=== PATIENT | female | born 1960 | race Caucasian/White ===

== ENCOUNTER → 2017-11-30 | Outpatient (CLI) | payer OTHER ==
[~2017-11-30] MED LIST: (None)50 MG PO; ASPI81CH PO; ATOR20 PO; Apple Cider Vi500 MG PO; CALC.25 PO; CELE200 PO; CETI5 PO; CHOL10002; CHRO200 PO; CITA20 PO; CLOP75 PO; CVS EYE BOTHEYES; Cinnamon500 MG PO; Crestor40 MG PO; DULO30 PO; DULO60 PO; FERRO-TIME325 MG PO; FISH1000 PO; FLONASE ALLERG9.9 ML NS; FOLI1 PO; FOLI400 PO; FURO20 PO; Fruity C250 MG PO; Garlic1 EAC1 PO; Garlic1000 MG PO; LEVSOD125 PO; LIDO5TP TOP; LOSA50 PO; Laxative5 M1 PO; Lisinopril2.5 MG PO; MAGNESIUM250 MG PO; NAPR220 PO; Novolog Fl100 UNIT/1 SC; OXYC5; SODBIC650 PO; Synthroid112 MCG PO; TOUJEO SOL300 UNIT/1 SQ; TUMERIC PO; VASCEPA0.5 GM PO; Valium5 MG PO; [UNRECOGNIZED DRUG - CODE] TOP; [UNRECOGNIZED DRUG - OTHER] PO
[2017-12-01 14:47] LABS: Source VAGINAL
== END | disposition home or self-care (01) ==
LOC: LAB 13:43 → LAB SHORT 13:43
PROVIDERS: Family Medicine
DX: Z00.00 Encounter for general adult medical examination without abnormal findings (principal)
CPT/HCPCS: G0145

== ENCOUNTER 2017-12-05 00:20 | Day surgery (SDC) | payer OTHER ==
[~2017-12-05 00:20] MED LIST changes: -CALC.25 PO; -CLOP75 PO; -CVS EYE BOTHEYES; -Crestor40 MG PO; -DULO60 PO; -FERRO-TIME325 MG PO; -FOLI1 PO; -FURO20 PO; -Fruity C250 MG PO; -LOSA50 PO; -Laxative5 M1 PO; -Novolog Fl100 UNIT/1 SC; -TUMERIC PO; -VASCEPA0.5 GM PO; -[UNRECOGNIZED DRUG - CODE] TOP; -[UNRECOGNIZED DRUG - OTHER] PO
[2017-12-05] MEDS ORDERED: DULO60 PO (14:55)
[2017-12-05] MEDS ORDERED: FOLI1 PO (14:56)
[2017-12-05] MEDS ORDERED: Laxative5 M1 PO (15:04)
[2017-12-05] MEDS ORDERED: [UNRECOGNIZED DRUG - OTHER] PO (15:05)
[2017-12-05] MEDS ORDERED: CLOP75 PO (15:07)
[2017-12-05] MEDS ORDERED: Novolog Fl100 UNIT/1 SC (15:07)
[2017-12-05] MEDS ORDERED: LOSA25 PO (15:07)
[2017-12-05] MEDS ORDERED: CVS EYE BOTHEYES (15:10)
[2017-12-05] MEDS ORDERED: [UNRECOGNIZED DRUG - CODE] TOP (15:15)
[2017-12-05] MEDS ORDERED: Crestor40 MG PO (15:16)
[2017-12-05] MEDS ORDERED: FURO20 PO (15:16)
[2017-12-05] MEDS ORDERED: TUMERIC PO (15:18)
[2017-12-05] MEDS ORDERED: VASCEPA0.5 GM PO (15:19)
[2017-12-05] MEDS ORDERED: CALC.25 PO (15:20)
[2017-12-05] MEDS ORDERED: FERRO-TIME325 MG PO (15:22)
[2017-12-05] MEDS ORDERED: Fruity C250 MG PO (15:24)
== END 2017-12-05 15:15 | disposition home or self-care (01) ==
LOC: ATC 00:20
DX: N18.5 Chronic kidney disease, stage 5 (principal); D63.1 Anemia in chronic kidney disease
CPT/HCPCS: 96365; J2916

== ENCOUNTER 2018-04-24 08:48 | Day surgery (SDC) | payer OTHER ==
[~2018-04-24] VITALS: Ht 165.1 cm; Wt 108.0 kg
[~2018-04-24 08:48] MED LIST changes: +CALC.25 PO; +CLOP75 PO; +CVS EYE BOTHEYES; +Crestor40 MG PO; +DULO60 PO; +FERRO-TIME325 MG PO; +FOLI1 PO; +FURO20 PO; +Fruity C250 MG PO; +LOSA25 PO; +Laxative5 M1 PO; +Novolog Fl100 UNIT/1 SC; +TUMERIC PO; +VASCEPA0.5 GM PO; +[UNRECOGNIZED DRUG - CODE] TOP; +[UNRECOGNIZED DRUG - OTHER] PO
[2018-04-24] MEDS ORDERED: GABA100 PO (09:25)
[2018-04-25 04:03] LABS: Hematocrit 32.1 % (33.0-51.0); Hemoglobin 10.6 g/dL (11.5-16.0)
[2018-04-25 04:32] LABS: Albumin, Blood 3.2 g/dL (3.4-5.0); Anion Gap 7 mmol/L (6-16); Blood Urea Nitrogen 34 mg/dL (8-24); Bun/Creatinine Ratio 8.6 (12.0-20.0); CO2, Blood 30 mmol/L (21-32); Calcium, Blood 8.2 mg/dL (8.5-10.1); Chloride, Blood 99 mmol/L (98-108); Creatinine, Blood 3.94 mg/dL (0.40-1.00); Glomerular Filtration Rate 12 (60-); Glucose, Blood 194 mg/dL (70-99); Phosphorus, Blood 3.3 mg/dL (2.5-4.9); Sodium, Blood 136 mmol/L (136-145)
[2018-04-25] MEDS ORDERED: SEVE800 PO (15:19)
== END 2018-04-25 15:58 | disposition home or self-care (01) ==
LOC: MHTC 08:48 → PCU 10:17 → MHTC 04-25 15:58
PROVIDERS: Internal Medicine
PROC: B2111ZZ Fluoroscopy of Multiple Coronary Arteries using Low Osmolar Contrast (ICD-10-PCS; principal; 2018-04-24)
PROC: 4A033BC Measurement of Arterial Pressure, Coronary, Percutaneous Approach (ICD-10-PCS; principal; 2018-04-24)
DX: I42.0 Dilated cardiomyopathy (principal); I34.0 Nonrheumatic mitral (valve) insufficiency; I51.9 Heart disease, unspecified; I25.10 Atherosclerotic heart disease of native coronary artery without angina pectoris; E11.22 Type 2 diabetes mellitus with diabetic chronic kidney disease; I12.0 Hypertensive chronic kidney disease with stage 5 chronic kidney disease or end stage renal disease; N18.6 End stage renal disease; E21.3 Hyperparathyroidism, unspecified; E66.9 Obesity, unspecified; Z99.2 Dependence on renal dialysis; Z86.73 Personal history of transient ischemic attack (TIA), and cerebral infarction without residual deficits; Z79.899 Other long term (current) drug therapy; Z88.1 Allergy status to other antibiotic agents; Z91.048 Other nonmedicinal substance allergy status; Z91.040 Latex allergy status; Z79.4 Long term (current) use of insulin
CPT/HCPCS: 36415; 80069; 82947; 85014; 85018; 93454; 93571; 99152; 99153; C1732; C1760; C1769; G0257; J0360; J1644; J1815; J1817; J2250; J3010; J7030; Q9967

== ENCOUNTER 2018-12-19 21:00 | Emergency (ER) | payer MEDICARE ==
[~2018-12-19] VITALS: Ht 167.6 cm; Wt 119.8 kg
[~2018-12-19 21:00] MED LIST changes: +GABA100 PO; +SEVE800 PO
[2018-12-19] MEDS ORDERED: WARF1 PO (23:31)
== END 2018-12-20 00:15 | disposition home or self-care (01) ==
LOC: ER 21:00
DX: T82.838A Hemorrhage due to vascular prosthetic devices, implants and grafts, initial encounter (principal); I12.0 Hypertensive chronic kidney disease with stage 5 chronic kidney disease or end stage renal disease; N18.6 End stage renal disease; E78.5 Hyperlipidemia, unspecified; E11.22 Type 2 diabetes mellitus with diabetic chronic kidney disease; F32.9 Major depressive disorder, single episode, unspecified
CPT/HCPCS: 99282

== ENCOUNTER 2019-01-07 18:28 | Emergency (ER) | payer MEDICARE ==
[~2019-01-07] VITALS: Ht 167.6 cm; Wt 117.9 kg
[~2019-01-07 18:28] MED LIST changes: +WARF1 PO
== END 2019-01-07 20:19 | disposition home or self-care (01) ==
LOC: ER 18:28
DX: T82.591A Other mechanical complication of surgically created arteriovenous shunt, initial encounter (principal); Z91.048 Other nonmedicinal substance allergy status; Z88.0 Allergy status to penicillin; Z91.040 Latex allergy status; Z79.4 Long term (current) use of insulin; Z79.899 Other long term (current) drug therapy; Z79.82 Long term (current) use of aspirin; Z79.01 Long term (current) use of anticoagulants
CPT/HCPCS: 12001; 99282-25

== ENCOUNTER 2019-07-16 17:03 | Inpatient (IN) | payer MEDICARE ==
[~2019-07-16] VITALS: Ht 167.6 cm; Wt 116.8 kg
[~2019-07-16 17:03] MED LIST changes: -ASPI81CH PO; +Apple Cider Vi300 MG PO; -Apple Cider Vi500 MG PO; +Aspirin EC81 MG PO; -CHOL10002; +CLARITIN10 MG PO; -Crestor40 MG PO; -DULO60 PO; +ROSU10TA PO; +TOUJEO SOL300 UNIT/1 SC; -TOUJEO SOL300 UNIT/1 SQ; +VITAMIN D31000 UNI2 PO; -WARF1 PO; +WARF4 PO; -[UNRECOGNIZED DRUG - OTHER] PO
[2019-07-16 18:40] LABS: BASOPHILS ABSOLUTE AUTO 0.03 K/mm3 (0.00-0.23); BASOPHILS PERCENT AUTO 1 % (0-2); EOSINOPHILS ABSOLUTE AUTO 0.03 K/mm3 (0.00-0.68); EOSINOPHILS PERCENT AUTO 1 % (0-6); Hematocrit 32.7 % (33.0-51.0); Hemoglobin 10.6 g/dL (11.5-16.0); IMMATURE GRAN ABSOLUTE AUTO 0.01 K/mm3 (0.00-0.10); IMMATURE GRAN PERCENT AUTO 0 % (0-1); LYMPHOCYTES ABSOLUTE AUTO 0.96 K/mm3 (0.84-5.20); LYMPHOCYTES PERCENT AUTO 23 % (21-46); MONOCYTES ABSOLUTE AUTO 0.43 K/mm3 (0.16-1.47); MONOCYTES PERCENT AUTO 10 % (4-13); Mean Corpuscular HGB 30.8 pg (26.0-34.0); Mean Corpuscular HGB Conc 32.4 g/dL (31.5-36.5); Mean Corpuscular Volume 95 fL (80-100); Mean Platelet Volume 9.6 fL (9.1-12.4); NEUTROPHILS ABSOLUTE AUTO 2.77 K/mm3 (1.96-9.15); NEUTROPHILS PERCENT AUTO 66 % (41-73); Platelet Count 156 K/mm3 (150-400); RDW Coefficient Variation 14.1 % (11.7-14.2); RDW Standard Deviation 49.2 fL (35.1-46.3); Red Blood Cell Count 3.44 M/mm3 (3.80-5.20); White Blood Cell Count 4.23 K/mm3 (4.00-11.30)
[2019-07-16 18:50] LABS: International Normalized Ratio 1.47
[2019-07-16 19:03] LABS: Albumin, Blood 3.9 g/dL (3.4-5.0); Albumin/Globulin Ratio 1.1 (0.8-1.8); Bilirubin, Total 0.7 mg/dL (0.1-1.0); Calcium, Blood 9.2 mg/dL (8.5-10.1); Globulin, Blood 3.6 g/dL (2.2-4.0); Total Protein, Blood 7.5 g/dL (6.4-8.2)
[2019-07-16 19:21] LABS: Bun/Creatinine Ratio 6.1 (12.0-20.0); Creatinine, Blood 3.94 mg/dL (0.40-1.00)
[2019-07-16] MEDS ORDERED: SYNTHROID150 MC1 PO (20:40)
[2019-07-16] MEDS ORDERED: RENAL-VITE TAB0.8 MG PO (20:43)
[2019-07-16] MEDS ORDERED: PREG75 PO (20:44)
[2019-07-16] MEDS ORDERED: CITA20 PO (20:44)
[2019-07-16] MEDS ORDERED: SENN187 PO (20:44)
[2019-07-16] MEDS ORDERED: MEGA BIOTIN10000 MCG PO (20:45)
[2019-07-16] MEDS ORDERED: Calcium Acetat667 MG PO (20:45)
[2019-07-17] MEDS ORDERED: TOUJEO SOL300 UNIT/1 SC (05:55)
--- NOTE | 2019-07-17 07:30 | NUR ---
ASSUMED CARE: PT AWAKE, SPEAKING TO STAFF. HEPARIN GTT RUNNING, CONFIRMED NUMBERS WITH NIGHT RN. NO ACUTE NEEDS OR CONCERNS AT THIS TIME.
--- NOTE | 2019-07-17 07:36 | NUR ---
END OF SHIFT SUMMARY PT TO PCY FROM ED, AXO, SBA X1 DUE TO IV POLE. VSS UPON ADMIT AND CONTINUES T/O SHIFT. PT ADMISSION PACKET COMPLETED. 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 PT ON CL DIET, NO REDS. CONSULT CALLED TO LIS, GI CONSULT ATTEMPTED TO BE CALLED IN, ANSWERING SERVICE STATED HAVING TO WAIT UNTIL 0800 TO CALL IN CONSULT, ONCOMING NURSE NOTIFIED OF THIS. FISTULA R ARM, STRONG BRUIT. HEPARIN INFUSION STARTED, TITRATED POST LABS AND TWO SEPARATE HEPARIN BOLUS GIVEN. OTHERWISE, PT HAS BEEN PLEASANT AND COOPERATIVE WITH STAFF. CALL LIGHT WITHIN REACH. BED IN LOWEST POSITION. REPORT GIVEN TO ONCOMING RN.
--- NOTE | 2019-07-17 09:11 | NUR ---
DR DIAS CALLED AND STATED THIS IS A PT OF DR KENNEDY AND THAT HE IS THE ONE THAT WANTED THE COLONOSCOPY. CALL TO DR KENNEDY'S OFFICE FOR NEW CONSULT
--- NOTE | 2019-07-17 14:44 | NUR ---
DR HAYS CAME TO SEE PT AND STATED THAT SHE IS FINE TO COMPLETE GOLYTELY. SPOKE WITH DIALYSIS NURSE TO RUN PT THIS AFTERNOON AND STATES TO START BOWEL PREP AFTER DIALYSIS IS FINISHED. CALL TO DAY SURGERY FOR SCHEDULE, PLAN IS FOR 10 AM. PT AND SPOUSE AWARE
--- NOTE | 2019-07-17 16:00 | NUR ---
DIALYSIS NURSE AT BEDSIDE
--- NOTE | 2019-07-17 16:27 | NUR ---
DISCUSSED GOLYTELY ORDERS WITH PT AND COMMERCIAL ESCROW OFFICER. AGREED TO HOLD UNTIL AFTER DIALYSIS
--- NOTE | 2019-07-17 18:33 | NUR ---
REPORT GIVEN TO ANN CURRAN. AWARE THAT GOLYTELY IS STARTING WHEN PT ARRIVES AND HEPARIN OFF AT 6 AM. PT STILL RECIEVING DIALYSIS AT THIS TIME. DENIES FURTHER NEEDS OR CONCERNS
--- NOTE | 2019-07-18 04:33 | NUR ---
SHIFT SUMMARY PT IS ALERT, ORIENTED AND INDEPENDENT. PT HAS BEEN MADE NPO PER THE SCHEDULED COLONOSCOPY THIS MORNING. PT MANAGED TO FINISH COLO PREP BY 2300, AND HAS HAD CLEAR BMS SINCE 0100. PT TOLERATED OVERALL BOWEL PREP WELL, HOWEVER THE PT DID GET EMOTIONAL AFTER A COUPLE OF INCONTINENT EPISODES. THERAPUTIC COMMUNICATION WAS USED TO GOOD EFFECT. PT DID FEEL A LITTLE SHAKEY DURING THE PREP. BLOOD SUGAR WAS CHECKED, AND WAS WNL. NO OTHER COMPLAINTS AT THIS TIME. VSS. WILL CONTINUE TO MONITOR.
--- NOTE | 2019-07-18 11:49 | NUR ---
History, Chart, Medications and Allergies reviewed before start of procedure. Patient confirms NPO status and agrees with scheduled surgery. Lungs clear T/O to Auscultation. Pre-Op teaching done. Pt verbalizes understanding. Patient states colon prep results clear.
--- NOTE | 2019-07-18 11:55 | NUR ---
PATIENT LEFT GLASSES IN ROOM. REDUCED VISION IN RIGHT EYE PER PATIENT. DENIES NEEDING HER GLASSES FOR CONSENT. AT BEDSIDE.
--- NOTE | 2019-07-18 11:56 | NUR ---
PATIENT NOTIFIED THAT THERE WOULD BE A WAIT, CALL LIGHT PROVIDED, QUESTIONS ANSWERED, PATIENT COMPFORT PROVIDED.
--- NOTE | 2019-07-18 13:13 | NUR ---
07/18/19 1313 Stephanie Russell PROCEDURE ROOM ENDO ROOM #1.
--- NOTE | 2019-07-18 18:00 | NUR ---
SUMMARY PT SITTING UP IN THE CHAIR AT THE BEDSIDE EATING DINNER AND VISITING WITH HER FAMILY, PT HAS BEEN PLEASANT AND COOPERATIVE T/O THE DAY, PT HAD A COLONOSCOPY AND JOSE ALBERTO WELL, PT BACK ON THE HEPARIN GTT, NO DIALYSIS TODAY, VSS, NO ACUTE CHANGES, WILL CONT TO MONITOR
--- NOTE | 2019-07-19 04:48 | NUR ---
SHIFT SUMMARY PT IS ALERT, ORIENTED, AND INDEPENDENT. PT'S HEPARIN GTT CONTINUES TO BE MANAGED BY PHARMACY. THE RATE WAS CHANGED ONCE. NO SIGNS OF BLEEDING FROM PT. PT IS WITHOUT COMPLAINTS. VSS. WILL CONTINUE TO MONITOR.
[2019-07-19 05:34] LABS: International Normalized Ratio 1.14; Prothrombin Time Results 11.9 Sec (9.7-11.5)
[2019-07-19 10:40] LABS: Hematocrit 28.4 % (33.0-51.0); Hemoglobin 9.5 g/dL (11.5-16.0)
[2019-07-19 10:58] LABS: Albumin, Blood 3.4 g/dL (3.4-5.0); Anion Gap 3 mmol/L (6-16); Blood Urea Nitrogen 29 mg/dL (8-24); Bun/Creatinine Ratio 7.1 (12.0-20.0); CO2, Blood 35 mmol/L (21-32); Calcium, Blood 8.3 mg/dL (8.5-10.1); Chloride, Blood 95 mmol/L (98-108); Creatinine, Blood 4.09 mg/dL (0.40-1.00); Glomerular Filtration Rate 12 (60-); Glucose, Blood 169 mg/dL (70-99); Phosphorus, Blood 3.7 mg/dL (2.5-4.9); Potassium, Blood 3.8 mmol/L (3.5-5.5); Sodium, Blood 133 mmol/L (136-145)
--- NOTE | 2019-07-19 18:28 | NUR ---
END OF SHIFT SUMMARY: PATIENT DENIED PAIN OR DISCOMFORT THROUGHOUT SHIFT. PATIENT WENT TO DIALYSIS THIS MORNING. TOLERATED WITHOUT GENERALIZED FATIGUE. HEPARIN DRIP CONTINUES TO PHARMACY CONSULT. PATIENT UNDERSTANDS THE PURPOSE OF THE MEDICATION. STARTED COUMADIN THIS EVENING PER PHARMACY CONSULT. PATIENT REPORTS THAT SHE IS ON THIS MEDICATION AT HOME AND FEELS COMFORTABLE WITH THIS MEDICATION. AT BEDSIDE FOR MUCH OF THE SHIFT. PATIENT UP TO CHAIR FOR MEALS AND RELAXATION. PATIENT DENIES DIZZINESS, SOB, OR LIGHTHEADEDNESS WITH AMBULATION. PATIENT IS HOPEFUL FOR A SUNDAY DISCHARGE.
[2019-07-20 05:00] LABS: Mean Platelet Volume 9.6 fL (9.1-12.4); Platelet Count 154 K/mm3 (150-400)
--- NOTE | 2019-07-20 05:09 | NUR ---
07/20/19 0500 AWAKE FOR LABWORK EARLIER AND TRIP TO THE BATHROOM FOR VOIDING. SLEPT POORLY DUE TO POOR PILLOWS AND MATTRESS. LAYING IN LOUNGE CHAIR FOR NOW AND HOPES TO SLEEP AGAIN. VITALS STABLE. AWAITING FOR COAG. PANEL TO ADJUST HEPARIN DRIP IF NEEDED. PHARMACY TO MONITOR HEPARIN DRIP DOSAGE.
[2019-07-20 05:19] LABS: International Normalized Ratio 1.15
--- NOTE | 2019-07-20 17:54 | NUR ---
Shift Summary A/Ox4, independent. Pleasant and cooperative with care. Ambulated in hallway a few times today, tolerated well. Pt scheduled for dialysis tomorrow (07/21). No c/o of pain, N/V/D. VSS, afebrile.
--- NOTE | 2019-07-21 00:11 | NUR ---
07/20/19 2300 PT HAVING TROUBLE SLEEPING THE PAST 2 DAYS AND RN PAGED MD FOR SLEEPER ORDER. ATIVAN 0,5 MG GIVEN. PT ALSO REQUESTED NOT TO BE AWAKENED FOR VITALS DURING THE NIGHT. AGREES TO VITALS WHEN LABWORK DRAWN.
--- NOTE | 2019-07-21 05:30 | NUR ---
07/21/19 0530 CHEERFUL THIS AM AND STATES SHE SLEPT WELL AFTER GETTING SLEEPER MED. VITALS STABLE. HEPARIN DRIP MAINTAINED AND AWAITING NEW LABWORK.
[2019-07-21 05:50] LABS: International Normalized Ratio 1.35; Prothrombin Time Results 13.9 Sec (9.7-11.5)
[2019-07-21 10:16] LABS: BASOPHILS ABSOLUTE AUTO 0.02 K/mm3 (0.00-0.23); BASOPHILS PERCENT AUTO 1 % (0-2); EOSINOPHILS ABSOLUTE AUTO 0.05 K/mm3 (0.00-0.68); EOSINOPHILS PERCENT AUTO 2 % (0-6); Hematocrit 27.3 % (33.0-51.0); Hemoglobin 9.2 g/dL (11.5-16.0); IMMATURE GRAN ABSOLUTE AUTO 0.01 K/mm3 (0.00-0.10); IMMATURE GRAN PERCENT AUTO 0 % (0-1); LYMPHOCYTES ABSOLUTE AUTO 0.72 K/mm3 (0.84-5.20); LYMPHOCYTES PERCENT AUTO 25 % (21-46); MONOCYTES ABSOLUTE AUTO 0.23 K/mm3 (0.16-1.47); MONOCYTES PERCENT AUTO 8 % (4-13); Mean Corpuscular HGB 31.2 pg (26.0-34.0); Mean Corpuscular HGB Conc 33.7 g/dL (31.5-36.5); Mean Corpuscular Volume 93 fL (80-100); Mean Platelet Volume 9.6 fL (9.1-12.4); NEUTROPHILS ABSOLUTE AUTO 1.81 K/mm3 (1.96-9.15); NEUTROPHILS PERCENT AUTO 64 % (41-73); Platelet Count 125 K/mm3 (150-400); RDW Standard Deviation 47.3 fL (35.1-46.3); Red Blood Cell Count 2.95 M/mm3 (3.80-5.20); White Blood Cell Count 2.84 K/mm3 (4.00-11.30)
[2019-07-21 11:02] LABS: Albumin, Blood 3.5 g/dL (3.4-5.0); Anion Gap 9 mmol/L (6-16); Blood Urea Nitrogen 34 mg/dL (8-24); Bun/Creatinine Ratio 7.7 (12.0-20.0); CO2, Blood 29 mmol/L (21-32); Calcium, Blood 8.1 mg/dL (8.5-10.1); Chloride, Blood 95 mmol/L (98-108); Creatinine, Blood 4.42 mg/dL (0.40-1.00); Glomerular Filtration Rate 11 (60-); Glucose, Blood 203 mg/dL (70-99); Sodium, Blood 133 mmol/L (136-145)
--- NOTE | 2019-07-21 14:17 | NUR ---
Per Dr. Walker and Shubham's conversation RE pt concerns of diet, Regular diet is now ordered.
--- NOTE | 2019-07-21 17:07 | NUR ---
Physician notified Dr. Walker notified RE patient's concern as to why she isn't taking Calcium Acetate along with Renvela like she does at home. Dr. Walker will f/u with Dr. Garnica with this concern tomorrow (07/21). Will pass on to next nurse to remind physician about this.
--- NOTE | 2019-07-21 17:10 | NUR ---
Shift Summary A/Ox4. Pleasant and cooperative with care. Pt was dialyzed today. Pt concern about her phosphate binders, this concern was brought up to Dr. Walker (see previous note). Pt was also upset with CarbCon diet and its restrictions. Dietary and Dr. Walker ok to change to Regular Diet. No other acute changes this shift. VSS, afebrile.
--- NOTE | 2019-07-21 17:44 | NUR ---
Physician notified Dr. Walker notified of evening BP 178/66. No orders received.
[2019-07-22 06:47] LABS: International Normalized Ratio 1.78; Prothrombin Time Results 17.9 Sec (9.7-11.5)
--- NOTE | 2019-07-22 07:21 | NUR ---
07/21/19 0600 AWAKE AND IV HEPARIN STOPPED FOR BLOOD DRAWS AND THEN RECONNECTED. SLEPT WELL THIS SHIFT. UNEVENTFUL NIGHT. VITALS STABLE.
--- NOTE | 2019-07-22 17:21 | NUR ---
SHIFT SUMMARY NO ACUTE CHANGES WITH PATIENT CONDITION TODAY. PT IS PLEASANT AND ORIENTED X4, SAT IN CHAIR MOST OF DAY, INDEPENDENT IN ROOM. HEPARIN RUNNING AT 32.8 ML/HR. PT DENIES PAIN, SOB, NAUSEA, STATES SHE WANTS TO GO HOME. POSSIBLE DISCHARGE TOMORROW AFTER DIALYSIS.
--- NOTE | 2019-07-23 04:51 | NUR ---
SHIFT SUMMARY: A/Ox3. Making needs known. Up ambulating independently in room. Walked the halls with spouse. Heparin infusion stopped for blood draw then resumed. Heparin dose unchanged tonight. No complaints at this time. Call button in reach.
[2019-07-23 05:57] LABS: BASOPHILS ABSOLUTE AUTO 0.03 K/mm3 (0.00-0.23); BASOPHILS PERCENT AUTO 1 % (0-2); EOSINOPHILS ABSOLUTE AUTO 0.08 K/mm3 (0.00-0.68); EOSINOPHILS PERCENT AUTO 2 % (0-6); Hematocrit 29.6 % (33.0-51.0); Hemoglobin 9.6 g/dL (11.5-16.0); IMMATURE GRAN ABSOLUTE AUTO 0.01 K/mm3 (0.00-0.10); IMMATURE GRAN PERCENT AUTO 0 % (0-1); LYMPHOCYTES ABSOLUTE AUTO 1.07 K/mm3 (0.84-5.20); LYMPHOCYTES PERCENT AUTO 26 % (21-46); MONOCYTES ABSOLUTE AUTO 0.26 K/mm3 (0.16-1.47); MONOCYTES PERCENT AUTO 6 % (4-13); Mean Corpuscular HGB 30.4 pg (26.0-34.0); Mean Corpuscular HGB Conc 32.4 g/dL (31.5-36.5); Mean Corpuscular Volume 94 fL (80-100); Mean Platelet Volume 10.1 fL (9.1-12.4); NEUTROPHILS ABSOLUTE AUTO 2.71 K/mm3 (1.96-9.15); NEUTROPHILS PERCENT AUTO 65 % (41-73); Platelet Count 132 K/mm3 (150-400); RDW Coefficient Variation 14.2 % (11.7-14.2); Red Blood Cell Count 3.16 M/mm3 (3.80-5.20); White Blood Cell Count 4.16 K/mm3 (4.00-11.30)
[2019-07-23 06:04] LABS: International Normalized Ratio 2.36; Prothrombin Time Results 23.1 Sec (9.7-11.5)
[2019-07-23 06:07] LABS: Albumin, Blood 3.6 g/dL (3.4-5.0); Anion Gap 8 mmol/L (6-16); Blood Urea Nitrogen 46 mg/dL (8-24); CO2, Blood 27 mmol/L (21-32); Calcium, Blood 8.2 mg/dL (8.5-10.1); Chloride, Blood 99 mmol/L (98-108); Creatinine, Blood 5.76 mg/dL (0.40-1.00); Glomerular Filtration Rate 8 (60-); Glucose, Blood 212 mg/dL (70-99); Phosphorus, Blood 6.4 mg/dL (2.5-4.9); Potassium, Blood 5.7 mmol/L (3.5-5.5); Sodium, Blood 134 mmol/L (136-145)
--- NOTE | 2019-07-23 18:20 | NUR ---
SHIFT SUMMARY NO ACUTE CHANGES WITH PATIENT'S CONDITION TODAY. NO CHANGES TO HEPARIN DOSE, HEPARIN RUNNING ALL DAY. DR MCDONOUGH STATED PATIENT WILL NOT DISCHARGE TODAY, WILL WAIT AT LEAST UNTIL THE INR IS DRAWN TOMORROW MORNING. PT HAD DIALYSIS THIS AFTERNOON. VSS, BLOOD SUGARS MORE CONTROLLED.
--- NOTE | 2019-07-24 05:13 | NUR ---
HEPARIN DRIP CONTINUES PER MD ORDERS - SEE MAR FOR DETAILS. DIALYSIS FISTULA STARTED BLEEDING EARLIER IN THE SHIFT, GAUZE DRESSING APPLIED, EFFECTIVE. INR 2.36 AT LAST DRAW, CURRENTLY LAB DRAWING ONE NOW. HAS BEEN RESTING QUIETLY WITH FEW INTERRUPTIONS OTHERWISE. CALL LIGHT IN REACH.
[2019-07-24 06:19] LABS: International Normalized Ratio 2.46
--- NOTE | 2019-07-24 11:40 | NUR ---
PATIENT DISCHARGE: PATIENT DISCHARGED TO HOME THIS SHIFT. MEDICATION RECONCILIATION COMPLETED; MED LIST FAXED TO [facility]; HOME MEDICATION RETURNED TO PATIENT. DISCHARGE EDUCATION COMPLETED WITH PATIENT AND SPOUSE. PATIENT TRANSPORTED TO EXIT BY [facility] STAFF WITH WHEELCHAIR AT 1125. PATIENT DEPARTED [facility] VIA PRIVATE AUTO.
== END 2019-07-24 11:18 | disposition home or self-care (01) | DRG 393 ==
LOC: ER 17:03 → PCU 19:22 → MEDS 19:22 → PCU 21:35 → MEDS 07-17 19:26 → ENPENDDIS 07-24 10:41 → MEDS 07-24 11:18
PROVIDERS: Hospitalist; Internal Medicine; Physician Assistant; Surgery; ADMIT Internal Medicine
PROC: 0DBL8ZX Excision of Transverse Colon, Via Natural or Artificial Opening Endoscopic, Diagnostic (ICD-10-PCS; principal; 2019-07-18 13:00)
PROC: 5A1D70Z Performance of Urinary Filtration, Intermittent, Less than 6 Hours Per Day (ICD-10-PCS; 2019-07-23)
DX: D12.3 Benign neoplasm of transverse colon (principal); N18.6 End stage renal disease; I12.0 Hypertensive chronic kidney disease with stage 5 chronic kidney disease or end stage renal disease; E11.42 Type 2 diabetes mellitus with diabetic polyneuropathy; E11.22 Type 2 diabetes mellitus with diabetic chronic kidney disease; H54.40 Blindness, one eye, unspecified eye; E20.9 Hypoparathyroidism, unspecified; Z79.82 Long term (current) use of aspirin; Z79.4 Long term (current) use of insulin; Z95.2 Presence of prosthetic heart valve; Z86.73 Personal history of transient ischemic attack (TIA), and cerebral infarction without residual deficits; E78.5 Hyperlipidemia, unspecified; E83.39 Other disorders of phosphorus metabolism; Z99.2 Dependence on renal dialysis
CPT/HCPCS: 36415; 80053; 80069; 82947; 85014; 85018; 85025; 85049; 85610; 85730; 88305; 99283; A9270; J0881; J1644; J2704; J7030

== ENCOUNTER 2020-07-27 21:41 | Observation (INO) | payer MEDICARE ==
[~2020-07-27] VITALS: Ht 172.7 cm; Wt 129.3 kg
[~2020-07-27 21:41] MED LIST changes: +BIOTIN PO; +Calcium Acetat667 MG PO; +PREG75 PO; +Rena-Vite Tabl0.8 MG PO; +SENN187 PO; +SYNTHROID150 MC1 PO; +TOUJEO SOL300 UNIT/2 SC; +VITAMIN D31000 UNI1 PO; -VITAMIN D31000 UNI2 PO
[2020-07-27 22:42] LABS: Source, Urine Clean Catch
[2020-07-27 22:44] LABS: Bilirubin, Urine Neg (Neg); Blood, Urine 4+ (Neg); Glucose Qualitative, Urine Neg (Neg); Ketones, Urine Neg (Neg); Leukocyte Esterase, Urine 1+ (Neg); Nitrite, Urine Neg (Neg); Protein, Urine 3+ (Neg); Urobilinogen, Urine NORM (Normal)
[2020-07-27 22:47] LABS: Appearance, Urine Clear (Clear); Color, Urine Yellow (P-Yellow)
[2020-07-27 22:55] LABS: Bacteria Mod /hpf; Squamous Epithelial Cells Few /hpf (Few); White Blood Cells, Urine 0-2 /hpf (0-5)
[2020-07-28 00:01] LABS: BASOPHILS ABSOLUTE AUTO 0.04 K/mm3 (0.00-0.23); BASOPHILS PERCENT AUTO 1 % (0-2); EOSINOPHILS ABSOLUTE AUTO 0.04 K/mm3 (0.00-0.68); EOSINOPHILS PERCENT AUTO 1 % (0-6); Hematocrit 27.5 % (33.0-51.0); IMMATURE GRAN ABSOLUTE AUTO 0.04 K/mm3 (0.00-0.10); IMMATURE GRAN PERCENT AUTO 1 % (0-1); LYMPHOCYTES ABSOLUTE AUTO 0.91 K/mm3 (0.84-5.20); LYMPHOCYTES PERCENT AUTO 11 % (21-46); MONOCYTES ABSOLUTE AUTO 0.41 K/mm3 (0.16-1.47); MONOCYTES PERCENT AUTO 5 % (4-13); Mean Corpuscular HGB 31.6 pg (26.0-34.0); Mean Corpuscular HGB Conc 32.7 g/dL (31.5-36.5); Mean Corpuscular Volume 97 fL (80-100); Mean Platelet Volume 10.2 fL (9.1-12.4); NEUTROPHILS ABSOLUTE AUTO 7.14 K/mm3 (1.96-9.15); NEUTROPHILS PERCENT AUTO 83 % (41-73); Platelet Count 113 K/mm3 (150-400); RDW Coefficient Variation 12.8 % (11.7-14.2); RDW Standard Deviation 45.7 fL (35.1-46.3); Red Blood Cell Count 2.85 M/mm3 (3.80-5.20); White Blood Cell Count 8.58 K/mm3 (4.00-11.30)
[2020-07-28 00:29] LABS: Albumin, Blood 3.6 g/dL (3.4-5.0); Bilirubin, Total 0.6 mg/dL (0.1-1.0); Bun/Creatinine Ratio 8.5 (12.0-20.0); Calcium, Blood 8.4 mg/dL (8.5-10.1); Creatinine, Blood 10.6 mg/dL (0.40-1.00); Globulin, Blood 3.6 g/dL (2.2-4.0); Potassium, Blood 5.8 mmol/L (3.5-5.5); Total Protein, Blood 7.2 g/dL (6.4-8.2)
[2020-07-28] MEDS ORDERED: OMEP20ER PO (01:56)
[2020-07-28] MEDS ORDERED: LOSARTAN POTASS25 M2 PO (01:57)
[2020-07-28 04:23] LABS: Hematocrit 27.2 % (33.0-51.0); Hemoglobin 8.9 g/dL (11.5-16.0)
[2020-07-28 04:37] LABS: International Normalized Ratio 3.3
[2020-07-28 04:56] LABS: Albumin, Blood 3.5 g/dL (3.4-5.0); Anion Gap 11 mmol/L (6-16); Blood Urea Nitrogen 91 mg/dL (8-24); Bun/Creatinine Ratio 8.6 (12.0-20.0); CO2, Blood 24 mmol/L (21-32); Calcium, Blood 8.1 mg/dL (8.5-10.1); Chloride, Blood 102 mmol/L (98-108); Glomerular Filtration Rate 4 (60-); Glucose, Blood 58 mg/dL (70-99); Phosphorus, Blood 5.7 mg/dL (2.5-4.9); Potassium, Blood 4.9 mmol/L (3.5-5.5); Sodium, Blood 137 mmol/L (136-145)
--- NOTE | 2020-07-28 05:39 | NUR ---
PT UP TO ICU 14 FROM ED. A&O. CURRENTLY SLEEPY. ATTEMPTED TO COMPLETE ADMISSION HOWEVER PT FELL ASLEEP. SBP ELEVATED. PO HYDRALAZINE GIVEN. NORMALLY DOES NOT REQUIRE SUPPLEMENTAL O2 HOWEVER SHE DESATS WHILE SLEEPING. ON 2LNC. PT IS EDEMATOUS T/O. WAS SUPPOSED TO HAVE DIALYSIS YESTERDAY BUT MISSED IT D/T NOT FEELING WELL. 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 IS SCHEDULED FOR DIALYSIS TODAY. LIS AWARE. K+ ON ADMIT 5.8. CREATININE 10.6, BUN 90, HGB 8.6. PT HAS PIV TO ARIANNE/SHOULDER. FLUSHES AND DRAWAS BACK. SL. WILL PASS REPORT TO ONCOMING SHIFT
--- NOTE | 2020-07-28 12:58 | NUR ---
PT RETURNED FROM DIALYSIS TO ICU 14. VITALS ARE STABLE, PT CONTINUES TO BE IN SINUS RHYTHM. PER PT, DR MIRAMONTES HAD DISCUSSED POSSIBLE DISCHARGE TODAY WHEN PT WAS AT DIALYSIS. NEW PRESSURE BANDAGE FOUND TO RIGHT ARM AT FISTULA SITE, PLACED BY DIALYSIS. NO FURTHER CHANGES NOTED TO ASSESSMENT. PT SET UP WITH LUNCH TRAY AND CALL LIGHT WITHIN REACH.
--- NOTE | 2020-07-28 14:30 | NUR ---
AMBULATED PT AROUND ROOM. PT REPORTED SLIGHT DIZZINESS AND DYSPNEA WHEN AMBULATING. PT WAS NOTED TO HAVE AN SPO2 READING AT 86% WHEN UP RIGHT. WHEN PT WOULD SIT DOWN, SPO2 IMPROVED TO MID 90'S. PT WAS MOSTY STEADY, BUT WOULD REACH FOR FURNITURE OCCASIONALLY. PT ALSO REPORTED THAT SHE HAS 9 STEPS IN HER HOME AND IS CONCERNED ABOUT BEING ABLE TO GET UP AND DOWN THE. DISCUSSED FINDINGS WITH DR MIRAMONTES. PT WILL STAY ANOTHER NIGHT.
--- NOTE | 2020-07-28 18:11 | NUR ---
SHIFT SUMMARY PT IS ALERT AND ORIENTEDx4. PT HAD DIALYSIS TODAY AND WAS WANTING TO GO HOME, HOWEVER PT WAS DIZZY WITH AMBULATION AND NOTED TO BE HYPOXIC, THEN WOULD IMPROVED WITH REST. THIS AFTERNOON PT WAS FOUND TO BE AWAKE RESTING IN BED WITH SPO2 MID 80'S. PT WAS PLACED ON 2l NC AND SHE WAS ALSO NOTED TO HAVE A TEMP OF 100.1. DR MIRAMONTES WAS NOTIFIED, NO NEW ORDERS RECEIVED. TODAY PT WAS STATUS CHANGED TO MEDICAL FLOOR WITH NO TELE. PRIOR TO REMOVAL OF TELEMETRY PT WAS IN SINUS RHYTHM. TRANSFER OF CARE REPORT WAS CALLED TO BINA CERRATO ON MEDICAL FLOOR. PT BELONGINGS GATHERED AND TRANSFERRED WITH PT. PT WAS ESCORTED TO ROOM 358 BY PCT.
[2020-07-28 18:19] LABS: Source, Urine Clean Catch
[2020-07-28 18:29] LABS: Appearance, Urine Clear (Clear); Bilirubin, Urine Neg (Neg); Blood, Urine 3+ (Neg); Color, Urine Yellow (P-Yellow); Glucose Qualitative, Urine 2+ (Neg); Ketones, Urine Neg (Neg); Leukocyte Esterase, Urine 2+ (Neg); Nitrite, Urine Neg (Neg); Protein, Urine 3+ (Neg); Urobilinogen, Urine NORM (Normal)
--- NOTE | 2020-07-28 18:41 | NUR ---
PT ARRIVED TO ROOM 358 VIA W/C FROM ICU 14. PT A/OX4, SBA INTO BED. PT DENIES ANY COMPLAINTS AT THIS TIME. WILL REPORT TO ONCOMG RN.
[2020-07-28 19:08] LABS: Mucus Mod (0-Heavy)
[2020-07-28 19:09] LABS: Bacteria Few /hpf; Squamous Epithelial Cells Mod /hpf (Few)
[2020-07-28 19:10] LABS: Amorphous Light (0-Heavy)
[2020-07-29 05:25] LABS: International Normalized Ratio 2.33; Prothrombin Time Results 23.8 Sec (9.7-11.5)
--- NOTE | 2020-07-29 05:35 | NUR ---
SHIFT SUMMARY NO ACUTE CHANGES THIS SHIFT. PT IS A&O X4, 1 ASSIST, CALLS APPROPRIATELY. PT SLEPT WELL T/O NIGHT. NO COMPLAINTS OF ANY KIND. PT IS LAYING IN BED WITH EYES CLOSED, EVEN AND UNLABORED RESPIRATIONS. BED IN LOWERED POSITION, CALL LIGHT AND PERSONAL ITEMS WITHIN REACH. NO APPARENT NEEDS OR DISTRESS AT THIS TIME, WILL CONTINUE TO MONITOR UNTIL REPORT GIVEN TO DAY RN.
--- NOTE | 2020-07-29 08:21 | NUR ---
PT REQUESTING TO BE DIALYZED TODAY, STATES IT IS TO HARD FOR HER TO COME BACK IN TOMORROW FROM [place] FOR OUTPATIENT DIALYSIS. I WAS NOTIFIED BY CLEANER AND POLISHER THIS AM THAT NO DIALYSIS WAS SCHEDULED FOR TODAY. SPOKE WITH BINA REDDY AND NOTIFIED HIM THAT PT IS REQUESTING TO BE DIALYZED AND ITS TO DIFFICULT TO COME BACK TOMORROW, HE REPORTS HE CAN RUN HER TODAY AT 0900.
--- NOTE | 2020-07-29 08:27 | NUR ---
BARRY PBX INSTALLER CALLED BACK AND STATED HE WAS CONCERNED IF PT MISSES DIALYSIS TOMORROW SHE WILL GO 3 DAYS WITHOUT DIALYSIS UNTIL SUNDAY SESSION. HE RECOMMENDED PT DOES NOT GET DIALYSIS TODAY AND FINDS A RIDE TOMORROW IN TO HER OUTPATIENT DIALYSIS SESSION, PT AGREED TO THIS. I WILL TALK WITH CASE MANAGEMENT FOR RIDE OPTIONS DUE TO PT HAVING TO FIND FRIENDS TO GIVE HER RIDES IN FROM [place].
--- NOTE | 2020-07-29 09:12 | NUR ---
PHYSICAL THERAPIST UP AMBULATING PT IN HALLS, ABOUT HALF WAY THROUGH PT BECAME DIZZY AND LIGHTHEADED AND HAD TO SIT. UPON COMING BACK TO PT ROOM THERAPIST CHECKED 02 SATS AND SATS 83% ON RA. THERAPIST REPORTS TOOK A FEW MINUTES FOR SATS TO COME BACK UP ABOVE 90%. PT NOW SITTING AT EDGE OF BED, SATS 95% ON RA PT REPORTS DIZZINESS SUBSIDING.
[2020-07-29 11:02] LABS: BASOPHILS ABSOLUTE AUTO 0.04 K/mm3 (0.00-0.23); BASOPHILS PERCENT AUTO 1 % (0-2); EOSINOPHILS ABSOLUTE AUTO 0.06 K/mm3 (0.00-0.68); EOSINOPHILS PERCENT AUTO 1 % (0-6); Hematocrit 25.1 % (33.0-51.0); Hemoglobin 8.1 g/dL (11.5-16.0); IMMATURE GRAN ABSOLUTE AUTO 0.02 K/mm3 (0.00-0.10); IMMATURE GRAN PERCENT AUTO 0 % (0-1); LYMPHOCYTES ABSOLUTE AUTO 0.94 K/mm3 (0.84-5.20); LYMPHOCYTES PERCENT AUTO 17 % (21-46); MONOCYTES ABSOLUTE AUTO 0.32 K/mm3 (0.16-1.47); MONOCYTES PERCENT AUTO 6 % (4-13); Mean Corpuscular HGB 31.4 pg (26.0-34.0); Mean Corpuscular HGB Conc 32.3 g/dL (31.5-36.5); Mean Corpuscular Volume 97 fL (80-100); Mean Platelet Volume 10.3 fL (9.1-12.4); NEUTROPHILS ABSOLUTE AUTO 4.13 K/mm3 (1.96-9.15); NEUTROPHILS PERCENT AUTO 75 % (41-73); Platelet Count 105 K/mm3 (150-400); RDW Coefficient Variation 12.9 % (11.7-14.2); RDW Standard Deviation 45.6 fL (35.1-46.3); Red Blood Cell Count 2.58 M/mm3 (3.80-5.20); White Blood Cell Count 5.51 K/mm3 (4.00-11.30)
[2020-07-29 11:24] LABS: PCO2 Arterial 44.5 mmHg (35-45); PO2 Arterial 50.3 mmHg (80-100); pH Blood Arterial 7.47 (7.35-7.45)
[2020-07-29 11:41] LABS: Albumin, Blood 3.1 g/dL (3.4-5.0); Anion Gap 7 mmol/L (6-16); Blood Urea Nitrogen 65 mg/dL (8-24); Bun/Creatinine Ratio 7.9 (12.0-20.0); CO2, Blood 31 mmol/L (21-32); Calcium, Blood 8.2 mg/dL (8.5-10.1); Chloride, Blood 97 mmol/L (98-108); Creatinine, Blood 8.21 mg/dL (0.40-1.00); Glomerular Filtration Rate 5 (60-); Glucose, Blood 292 mg/dL (70-99); Phosphorus, Blood 4.9 mg/dL (2.5-4.9); Potassium, Blood 4.8 mmol/L (3.5-5.5); Sodium, Blood 135 mmol/L (136-145)
--- NOTE | 2020-07-29 16:43 | NUR ---
DIALYSIS WITH 1 UNIT PRBC TRANSFUSION COMPLETED, PT AMBULATED IN HALLS WITH RT FOR HOME 02 EVAL. PER RT PT QUALIFIES FOR HOME 02 AT 2L N/C CONTINUOUS. CREATIVE WRITING ENGLISH PROFESSOR ARNULFO NOTIFIED OF THIS. PT REPORTS AFTERWARDS SHE WAS WORRIED ABOUT GOING HOME, SHE HAS REPORTED THIS MULTIPLE TIMES TODAY. 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 SHE HAS REQUESTED TO STAY ANOTHER NIGHT HOWEVER DR MIRAMONTES REPORTS SHE IS READY FOR DISCHARGE. SPOKE WITH DISCHARGE PLANNING REGARDING RIDES TO DIALYSIS BUT PT LIVES IN [place] WITH A 0535 CHAIR TIME AT [facility], WED, AND FRI AND NO RIDES AVAILABLE. IJEOMA RIDES INGO GIVEN TO PT WELL COMMUNITY RESOURCE BOOK. MYSELF AND RT SPOKE TO PT REGARDING APPLYING FOR BENEFITS FOR HELP FOR HER AND HER SPOUSE. PT ALSO REPORTED THAT SHE HAS DIFFICULTY WITH HOME CPAP AND HAS ALMOST DROWNED TWICE SO HAS NOT WORN HOME CPAP FOR QUITE SOME TIME. I CALLED AND SPOKE WITH [facility] REGARDING THIS, THEY HAVE ADJUSTED HUMIDIFIER VIA THERE OFFICE AND EXPLAINED TO THEM ABOUT THE MASK, THEY REPORT PT WILL NEED ORDER AND TO CALL [facility] FOR MASK FITTING, HARD SCRIPT GIVEN TO PT. SHELLI FROM RT GAVE PT A MASK TO GO HOME WITH WELL TO TRY. I HAVE UPDATED PT SPOUSE WHO PLANS ON COMING TO GET PT. PT CONTINUES TO BE ANXIOUS ABOUT GOING HOME BUT UNDERSTANDS SHE CANNOT STAY HERE. AT THIS TIME AWAITING HOME 02 FROM [facility].
--- NOTE | 2020-07-29 17:25 | NUR ---
DISCHARGE INSTRUCTIONS REVIEWED WITH PT. IV DC'D INTACT. ANGELICA DELIVERED PORTABLE 02 AND WILL MEET AT PT'S HOUSE FOR CONCENTRATOR AND TO LOOK AT HOME CPAP. PT ESCORTED OUT VIA W/C AT 1733 TO D/C HOME WITH SPOUSE.
== END 2020-07-29 17:38 | disposition home or self-care (01) ==
LOC: ER 21:41 → ICUW 21:44 → ER 07-28 02:45 → ICUW 07-28 03:15 → MEDS 07-28 18:30
PROVIDERS: Emergency Medicine; Internal Medicine; ADMIT Family Medicine
PROC: 30233N1 Transfusion of Nonautologous Red Blood Cells into Peripheral Vein, Percutaneous Approach (ICD-10-PCS; principal; 2020-07-29)
DX: E87.70 Fluid overload, unspecified (principal); E87.5 Hyperkalemia; I12.0 Hypertensive chronic kidney disease with stage 5 chronic kidney disease or end stage renal disease; E11.22 Type 2 diabetes mellitus with diabetic chronic kidney disease; N18.6 End stage renal disease; D63.1 Anemia in chronic kidney disease; I25.10 Atherosclerotic heart disease of native coronary artery without angina pectoris; E11.42 Type 2 diabetes mellitus with diabetic polyneuropathy; E89.2 Postprocedural hypoparathyroidism; E11.319 Type 2 diabetes mellitus with unspecified diabetic retinopathy without macular edema; N25.81 Secondary hyperparathyroidism of renal origin; E03.9 Hypothyroidism, unspecified; E78.5 Hyperlipidemia, unspecified; K21.9 Gastro-esophageal reflux disease without esophagitis; J96.01 Acute respiratory failure with hypoxia; R42 Dizziness and giddiness; F32.9 Major depressive disorder, single episode, unspecified; R50.9 Fever, unspecified; G47.33 Obstructive sleep apnea (adult) (pediatric); Z98.51 Tubal ligation status; Z95.1 Presence of aortocoronary bypass graft; Z86.73 Personal history of transient ischemic attack (TIA), and cerebral infarction without residual deficits; Z95.2 Presence of prosthetic heart valve; Z99.2 Dependence on renal dialysis; Z88.1 Allergy status to other antibiotic agents; Z91.040 Latex allergy status; Z91.048 Other nonmedicinal substance allergy status; Z79.4 Long term (current) use of insulin; Z79.01 Long term (current) use of anticoagulants; Z79.899 Other long term (current) drug therapy; Z20.828 Contact with and (suspected) exposure to other viral communicable diseases; Z99.89 Dependence on other enabling machines and devices; Z91.19 Patient's noncompliance with other medical treatment and regimen; Z91.15 Patient's noncompliance with renal dialysis; Z23 Encounter for immunization
CPT/HCPCS: 36415; 36430; 36600; 71046; 80053; 80069; 81001; 82803; 82947; 84145; 84443; 85014; 85018; 85025; 85610; 86850; 86900; 86901; 86923; 87086; 93005; 93010; 94761; 96372; 96374; 96375; 97162; 99285-25; A9270-GY; G0257; G0378; J0881; J1815; J1940; P9016; U0003

== ENCOUNTER 2021-02-01 15:12 | Emergency (ER) | payer MEDICARE ==
[~2021-02-01] VITALS: Ht 165.1 cm; Wt 115.7 kg
[~2021-02-01 15:12] MED LIST changes: +LOSARTAN POTASS25 M2 PO; +OMEP20ER PO
[2021-02-01 16:17] LABS: BASOPHILS ABSOLUTE AUTO 0.04 K/mm3 (0.00-0.23); BASOPHILS PERCENT AUTO 1 % (0-2); EOSINOPHILS ABSOLUTE AUTO 0.08 K/mm3 (0.00-0.68); EOSINOPHILS PERCENT AUTO 2 % (0-6); Hematocrit 29.7 % (33.0-51.0); Hemoglobin 9.9 g/dL (11.5-16.0); IMMATURE GRAN ABSOLUTE AUTO 0.01 K/mm3 (0.00-0.10); IMMATURE GRAN PERCENT AUTO 0 % (0-1); LYMPHOCYTES PERCENT AUTO 26 % (21-46); MONOCYTES PERCENT AUTO 9 % (4-13); Mean Corpuscular HGB 30.5 pg (26.0-34.0); Mean Corpuscular HGB Conc 33.3 g/dL (31.5-36.5); Mean Corpuscular Volume 91 fL (80-100); Mean Platelet Volume 10.3 fL (9.1-12.4); NEUTROPHILS ABSOLUTE AUTO 2.84 K/mm3 (1.96-9.15); NEUTROPHILS PERCENT AUTO 62 % (41-73); Platelet Count 133 K/mm3 (150-400); RDW Coefficient Variation 13.8 % (11.7-14.2); RDW Standard Deviation 46.5 fL (35.1-46.3); Red Blood Cell Count 3.25 M/mm3 (3.80-5.20); White Blood Cell Count 4.57 K/mm3 (4.00-11.30)
[2021-02-01 16:29] LABS: Albumin, Blood 3.8 g/dL (3.4-5.0); Albumin/Globulin Ratio 1.1 (0.8-1.8); Bilirubin, Total 0.9 mg/dL (0.1-1.0); Bun/Creatinine Ratio 6.2 (12.0-20.0); Creatinine, Blood 6.34 mg/dL (0.40-1.00); Globulin, Blood 3.4 g/dL (2.2-4.0); Potassium, Blood 4.5 mmol/L (3.5-5.5); Total Protein, Blood 7.2 g/dL (6.4-8.2)
== END 2021-02-01 17:19 | disposition home or self-care (01) ==
LOC: ER 15:12
PROVIDERS: Physician Assistant
DX: T82.838A Hemorrhage due to vascular prosthetic devices, implants and grafts, initial encounter (principal); E11.42 Type 2 diabetes mellitus with diabetic polyneuropathy; E03.9 Hypothyroidism, unspecified; E11.22 Type 2 diabetes mellitus with diabetic chronic kidney disease; N18.6 End stage renal disease; Z91.09 Other allergy status, other than to drugs and biological substances; Z88.0 Allergy status to penicillin; Z91.040 Latex allergy status; Z79.01 Long term (current) use of anticoagulants; Z79.4 Long term (current) use of insulin; Z79.899 Other long term (current) drug therapy
CPT/HCPCS: 12001; 36415; 76882; 80053; 85025; 99284; A9270

== ENCOUNTER 2021-12-21 14:22 | Emergency (ER) | payer MEDICARE ==
[~2021-12-21] VITALS: Ht 167.6 cm; Wt 117.9 kg
[2021-12-21 15:04] LABS: BASOPHILS ABSOLUTE AUTO 0.03 K/mm3 (0.00-0.23); BASOPHILS PERCENT AUTO 1 % (0-2); EOSINOPHILS ABSOLUTE AUTO 0.05 K/mm3 (0.00-0.68); EOSINOPHILS PERCENT AUTO 2 % (0-6); Hematocrit 29.4 % (33.0-51.0); Hemoglobin 9.6 g/dL (11.5-16.0); IMMATURE GRAN ABSOLUTE AUTO 0.01 K/mm3 (0.00-0.10); IMMATURE GRAN PERCENT AUTO 0 % (0-1); LYMPHOCYTES ABSOLUTE AUTO 0.75 K/mm3 (0.84-5.20); LYMPHOCYTES PERCENT AUTO 23 % (21-46); MONOCYTES ABSOLUTE AUTO 0.32 K/mm3 (0.16-1.47); MONOCYTES PERCENT AUTO 10 % (4-13); Mean Corpuscular HGB 29.8 pg (26.0-34.0); Mean Corpuscular HGB Conc 32.7 g/dL (31.5-36.5); Mean Corpuscular Volume 91 fL (80-100); Mean Platelet Volume 9.9 fL (9.1-12.4); NEUTROPHILS ABSOLUTE AUTO 2.16 K/mm3 (1.96-9.15); NEUTROPHILS PERCENT AUTO 65 % (41-73); Platelet Count 89 K/mm3 (150-400); RDW Coefficient Variation 13.7 % (11.7-14.2); RDW Standard Deviation 46.5 fL (35.1-46.3); Red Blood Cell Count 3.22 M/mm3 (3.80-5.20); White Blood Cell Count 3.32 K/mm3 (4.00-11.30)
[2021-12-21 15:15] LABS: Albumin, Blood 3.7 g/dL (3.4-5.0); Albumin/Globulin Ratio 1.1 (0.8-1.8); Bilirubin, Total 0.9 mg/dL (0.1-1.0); Bun/Creatinine Ratio 6.7 (12.0-20.0); Creatinine, Blood 5.21 mg/dL (0.40-1.00); Globulin, Blood 3.5 g/dL (2.2-4.0); Potassium, Blood 3.8 mmol/L (3.5-5.5); Total Protein, Blood 7.2 g/dL (6.4-8.2)
[2021-12-21 15:26] LABS: International Normalized Ratio 1.97; Prothrombin Time Results 19.8 Sec (9.7-11.5)
[2021-12-24 14:10] LABS: HEPARIN INDUCED PLATELET AB 0.188 OD (0.000-0.400)
== END 2021-12-21 17:56 | disposition home or self-care (01) ==
LOC: ER 14:22
PROVIDERS: Anesthesiology; Emergency Medicine
DX: T82.838A Hemorrhage due to vascular prosthetic devices, implants and grafts, initial encounter (principal); D69.6 Thrombocytopenia, unspecified; E11.22 Type 2 diabetes mellitus with diabetic chronic kidney disease; N18.6 End stage renal disease; E11.40 Type 2 diabetes mellitus with diabetic neuropathy, unspecified; Z99.2 Dependence on renal dialysis; E03.9 Hypothyroidism, unspecified; Z91.048 Other nonmedicinal substance allergy status; Z88.0 Allergy status to penicillin; Z91.040 Latex allergy status
CPT/HCPCS: 36415; 80053; 82272; 85025; 85610; 86850; 86900; 86901; 93971; 99284-25; A9270

== ENCOUNTER 2022-01-01 16:36 | Emergency (ER) | payer MEDICARE ==
[~2022-01-01] VITALS: Ht 167.6 cm; Wt 117.0 kg
[2022-01-01 17:31] LABS: BASOPHILS ABSOLUTE AUTO 0.05 K/mm3 (0.00-0.23); BASOPHILS PERCENT AUTO 1 % (0-2); EOSINOPHILS ABSOLUTE AUTO 0.08 K/mm3 (0.00-0.68); EOSINOPHILS PERCENT AUTO 2 % (0-6); Hematocrit 27.6 % (33.0-51.0); Hemoglobin 9.1 g/dL (11.5-16.0); IMMATURE GRAN ABSOLUTE AUTO 0.02 K/mm3 (0.00-0.10); IMMATURE GRAN PERCENT AUTO 0 % (0-1); LYMPHOCYTES ABSOLUTE AUTO 0.87 K/mm3 (0.84-5.20); LYMPHOCYTES PERCENT AUTO 18 % (21-46); MONOCYTES ABSOLUTE AUTO 0.45 K/mm3 (0.16-1.47); MONOCYTES PERCENT AUTO 9 % (4-13); Mean Corpuscular HGB 30.4 pg (26.0-34.0); Mean Corpuscular Volume 92 fL (80-100); Mean Platelet Volume 10.9 fL (9.1-12.4); NEUTROPHILS ABSOLUTE AUTO 3.48 K/mm3 (1.96-9.15); NEUTROPHILS PERCENT AUTO 70 % (41-73); Platelet Count 74 K/mm3 (150-400); RDW Coefficient Variation 14.4 % (11.7-14.2); Red Blood Cell Count 2.99 M/mm3 (3.80-5.20); White Blood Cell Count 4.95 K/mm3 (4.00-11.30)
[2022-01-01] MEDS ORDERED: METO25ER PO (18:03)
[2022-01-01 18:21] LABS: Albumin, Blood 3.8 g/dL (3.4-5.0); Albumin/Globulin Ratio 1.1 (0.8-1.8); Bilirubin, Total 0.6 mg/dL (0.1-1.0); Bun/Creatinine Ratio 7.3 (12.0-20.0); Calcium, Blood 8.4 mg/dL (8.5-10.1); Creatinine, Blood 8.64 mg/dL (0.40-1.00); Globulin, Blood 3.6 g/dL (2.2-4.0); Potassium, Blood 5.3 mmol/L (3.5-5.5); Total Protein, Blood 7.4 g/dL (6.4-8.2)
[2022-01-01] MEDS ORDERED: Robaxin750 MG PO (21:34)
[2022-01-01] MEDS ORDERED: LIDO700A20 TOP (21:34)
[2022-01-01] MEDS ORDERED: Voltaren100 GM TOP (21:34)
== END 2022-01-01 22:08 | disposition home or self-care (01) ==
LOC: ER 16:36
PROVIDERS: Physician Assistant
DX: S13.4XXA Sprain of ligaments of cervical spine, initial encounter (principal); S20.221A Contusion of right back wall of thorax, initial encounter; R00.1 Bradycardia, unspecified; T44.7X5A Adverse effect of beta-adrenoreceptor antagonists, initial encounter; E11.22 Type 2 diabetes mellitus with diabetic chronic kidney disease; N18.6 End stage renal disease; E03.9 Hypothyroidism, unspecified; Z79.899 Other long term (current) drug therapy; Z91.040 Latex allergy status; Z88.0 Allergy status to penicillin; X58.XXXA Exposure to other specified factors, initial encounter
CPT/HCPCS: 36415; 71046; 72125; 73010; 80053; 83690; 83880; 84484; 85025; 93005; 93010; 96374; 99284-25; A9270; J0461

== ENCOUNTER 2022-03-17 09:57 | Emergency (ER) | payer MEDICARE ==
[~2022-03-17] VITALS: Ht 167.6 cm; Wt 127.0 kg
[~2022-03-17 09:57] MED LIST changes: +LIDO700A20 TOP; +METO25ER PO; +Robaxin750 MG PO; +Voltaren100 GM TOP
[2022-03-17 12:30] LABS: BASOPHILS ABSOLUTE AUTO 0.03 K/mm3 (0.00-0.23); BASOPHILS PERCENT AUTO 1 % (0-2); EOSINOPHILS ABSOLUTE AUTO 0.05 K/mm3 (0.00-0.68); EOSINOPHILS PERCENT AUTO 1 % (0-6); Hematocrit 23.7 % (33.0-51.0); Hemoglobin 7.6 g/dL (11.5-16.0); IMMATURE GRAN ABSOLUTE AUTO 0.03 K/mm3 (0.00-0.10); IMMATURE GRAN PERCENT AUTO 1 % (0-1); LYMPHOCYTES ABSOLUTE AUTO 0.52 K/mm3 (0.84-5.20); LYMPHOCYTES PERCENT AUTO 8 % (21-46); MONOCYTES ABSOLUTE AUTO 0.39 K/mm3 (0.16-1.47); MONOCYTES PERCENT AUTO 6 % (4-13); Mean Corpuscular HGB 30.9 pg (26.0-34.0); Mean Corpuscular HGB Conc 32.1 g/dL (31.5-36.5); Mean Corpuscular Volume 96 fL (80-100); Mean Platelet Volume 10.2 fL (9.1-12.4); NEUTROPHILS ABSOLUTE AUTO 5.14 K/mm3 (1.96-9.15); NEUTROPHILS PERCENT AUTO 84 % (41-73); Platelet Count 139 K/mm3 (150-400); RDW Standard Deviation 57.1 fL (35.1-46.3); Red Blood Cell Count 2.46 M/mm3 (3.80-5.20); White Blood Cell Count 6.16 K/mm3 (4.00-11.30)
[2022-03-17 12:49] LABS: International Normalized Ratio 1.46
[2022-03-17 13:23] LABS: Albumin, Blood 3.8 g/dL (3.4-5.0); Bilirubin, Total 2.1 mg/dL (0.1-1.0); Bun/Creatinine Ratio 7.2 (12.0-20.0); Calcium, Blood 9.7 mg/dL (8.5-10.1); Globulin, Blood 3.8 g/dL (2.2-4.0); Potassium, Blood 5.3 mmol/L (3.5-5.5); Total Protein, Blood 7.6 g/dL (6.4-8.2)
== END 2022-03-17 14:10 | disposition home or self-care (01) ==
LOC: ER 09:57
PROVIDERS: Emergency Medicine
DX: S80.01XA Contusion of right knee, initial encounter (principal); W19.XXXA Unspecified fall, initial encounter; E11.319 Type 2 diabetes mellitus with unspecified diabetic retinopathy without macular edema; E11.22 Type 2 diabetes mellitus with diabetic chronic kidney disease; E11.42 Type 2 diabetes mellitus with diabetic polyneuropathy; E03.9 Hypothyroidism, unspecified; E20.9 Hypoparathyroidism, unspecified; N18.6 End stage renal disease; Z91.040 Latex allergy status; Z88.0 Allergy status to penicillin; Z91.048 Other nonmedicinal substance allergy status; Z79.899 Other long term (current) drug therapy; Z99.2 Dependence on renal dialysis; Z79.01 Long term (current) use of anticoagulants
CPT/HCPCS: 36415; 73700; 80053; 85025; 85610; J3010

== ENCOUNTER 2022-04-12 09:33 | Emergency (ER) | payer MEDICARE ==
[~2022-04-12] VITALS: Ht 167.6 cm; Wt 121.6 kg
== END 2022-04-12 11:27 | disposition home or self-care (01) ==
LOC: ER 09:33
DX: S63.501A Unspecified sprain of right wrist, initial encounter (principal); S76.912A Strain of unspecified muscles, fascia and tendons at thigh level, left thigh, initial encounter; S76.911A Strain of unspecified muscles, fascia and tendons at thigh level, right thigh, initial encounter; E11.22 Type 2 diabetes mellitus with diabetic chronic kidney disease; N18.6 End stage renal disease; E03.9 Hypothyroidism, unspecified; W01.0XXA Fall on same level from slipping, tripping and stumbling without subsequent striking against object, initial encounter; Z91.09 Other allergy status, other than to drugs and biological substances; Z79.899 Other long term (current) drug therapy; Z79.01 Long term (current) use of anticoagulants; Z79.4 Long term (current) use of insulin; Z88.0 Allergy status to penicillin; Z91.040 Latex allergy status; Z99.2 Dependence on renal dialysis; Z95.2 Presence of prosthetic heart valve
CPT/HCPCS: 73110

== ENCOUNTER 2022-07-03 13:06 | Emergency (ER) | payer MEDICARE ==
[~2022-07-03] VITALS: Ht 165.1 cm; Wt 136.1 kg
[2022-07-03 13:35] LABS: BASOPHILS ABSOLUTE AUTO 0.04 K/mm3 (0.00-0.23); BASOPHILS PERCENT AUTO 1 % (0-2); EOSINOPHILS PERCENT AUTO 2 % (0-6); Hematocrit 32.1 % (33.0-51.0); Hemoglobin 10.4 g/dL (11.5-16.0); IMMATURE GRAN ABSOLUTE AUTO 0.03 K/mm3 (0.00-0.10); IMMATURE GRAN PERCENT AUTO 1 % (0-1); LYMPHOCYTES ABSOLUTE AUTO 1.02 K/mm3 (0.84-5.20); LYMPHOCYTES PERCENT AUTO 16 % (21-46); MONOCYTES ABSOLUTE AUTO 0.33 K/mm3 (0.16-1.47); MONOCYTES PERCENT AUTO 5 % (4-13); Mean Corpuscular HGB 30.1 pg (26.0-34.0); Mean Corpuscular HGB Conc 32.4 g/dL (31.5-36.5); Mean Corpuscular Volume 93 fL (80-100); NEUTROPHILS ABSOLUTE AUTO 4.95 K/mm3 (1.96-9.15); NEUTROPHILS PERCENT AUTO 77 % (41-73); Platelet Count 77 K/mm3 (150-400); RDW Coefficient Variation 17.3 % (11.7-14.2); Red Blood Cell Count 3.45 M/mm3 (3.80-5.20); White Blood Cell Count 6.47 K/mm3 (4.00-11.30)
[2022-07-03] MEDS ORDERED: ROPINIROLE HC PO (14:06)
[2022-07-03] MEDS ORDERED: CYTOMEL25 MC2 PO (14:06)
[2022-07-03] MEDS ORDERED: FURO80 (14:07)
[2022-07-03] MEDS ORDERED: HYDRA25 (14:07)
[2022-07-03] MEDS ORDERED: AMLODIPINE BESY10 MG (14:08)
[2022-07-03] MEDS ORDERED: VASCEPA0.5 GM (14:08)
[2022-07-03 14:12] LABS: International Normalized Ratio 2.98; Prothrombin Time Results 29.1 Sec (9.7-11.5)
[2022-07-03 14:25] LABS: Albumin, Blood 3.2 g/dL (3.4-5.0); Albumin/Globulin Ratio 0.9 (0.8-1.8); Bilirubin, Total 1.1 mg/dL (0.1-1.0); Bun/Creatinine Ratio 4.9 (12.0-20.0); Calcium, Blood 8.9 mg/dL (8.5-10.1); Creatinine, Blood 6.78 mg/dL (0.40-1.00); Globulin, Blood 3.4 g/dL (2.2-4.0); Potassium, Blood 4.4 mmol/L (3.5-5.5); Total Protein, Blood 6.6 g/dL (6.4-8.2)
== END 2022-07-03 16:49 | disposition home or self-care (01) ==
LOC: ER 13:06
PROVIDERS: Emergency Medicine
DX: R55 Syncope and collapse (principal); G25.81 Restless legs syndrome; E87.70 Fluid overload, unspecified; E11.22 Type 2 diabetes mellitus with diabetic chronic kidney disease; N18.6 End stage renal disease; E11.42 Type 2 diabetes mellitus with diabetic polyneuropathy; E11.319 Type 2 diabetes mellitus with unspecified diabetic retinopathy without macular edema; Z99.2 Dependence on renal dialysis; E03.9 Hypothyroidism, unspecified; Z95.4 Presence of other heart-valve replacement; Z79.4 Long term (current) use of insulin; Z79.01 Long term (current) use of anticoagulants; Z79.899 Other long term (current) drug therapy; Z91.040 Latex allergy status; Z88.0 Allergy status to penicillin; Z88.8 Allergy status to other drugs, medicaments and biological substances; Z91.09 Other allergy status, other than to drugs and biological substances
CPT/HCPCS: 71045; 80053; 85025; 85610

== ENCOUNTER 2022-07-15 23:21 | Emergency (ER) | payer MEDICARE ==
[~2022-07-15] VITALS: Ht 167.6 cm; Wt 156.5 kg
[~2022-07-15 23:21] MED LIST changes: +AMLODIPINE BESY10 MG; +CYTOMEL25 MC2 PO; +FURO80; +HYDRA25; +ROPINIROLE HC PO; +VASCEPA0.5 GM
== END 2022-07-16 02:21 ==
LOC: ER 23:21
DX: I46.9 Cardiac arrest, cause unspecified (principal); J96.00 Acute respiratory failure, unspecified whether with hypoxia or hypercapnia; I12.0 Hypertensive chronic kidney disease with stage 5 chronic kidney disease or end stage renal disease; N18.6 End stage renal disease; K21.9 Gastro-esophageal reflux disease without esophagitis; E03.9 Hypothyroidism, unspecified; E78.5 Hyperlipidemia, unspecified; E11.22 Type 2 diabetes mellitus with diabetic chronic kidney disease; Z99.2 Dependence on renal dialysis
CPT/HCPCS: 92950; 99285-25